=== PATIENT | female | born 1995 | race Caucasian/White ===

== ENCOUNTER 2019-11-03 16:22 | Emergency (ER) | payer BC ==
[~2019-11-03] VITALS: Ht 170.2 cm; Wt 72.7 kg
[2019-11-03 16:41] VITALS: Ht 170.2 cm; Wt 72.7 kg
[2019-11-03 17:06] LABS: BASOPHILS 0.1 % (0-2); EOSINOPHILS 0 % (0-7); IMMATURE GRANULOCYTES 0.3 % (0-5); LYMPHOCYTES 3.5 % (15-50); MCH 29.9 pg (26.0-34.0); MCHC 34.9 g/dL (31.0-37.0); MCV 85.7 fL (80.0-100.0); MEAN PLATELET VOLUME 10.7 fL (7.4-10.4); NEUTROPHILS 92.1 % (40-80); PLATELET COUNT 226 10x3/uL (130-400); RBC 5.02 10x6/uL (4.00-5.40); RDW 12.2 % (11.5-14.5)
[2019-11-03 17:13] LABS: BILIRUBIN NEGATIVE (NEGATIVE); GLUCOSE NEGATIVE (NEGATIVE); KETONE NEGATIVE (NEGATIVE); NITRITE NEGATIVE (NEGATIVE); UROBILINOGEN NORMAL (NORMAL)
[2019-11-03 17:14] LABS: HCG URINE NEGATIVE (NEGATIVE)
[2019-11-03 17:24] LABS: CALC OSMOLALITY 278 mosm/kg (275-300); CALCIUM 8.9 mg/dL (8.5-10.1); CARBON DIOXIDE 28.4 mmol/L (21.0-32.0); CHLORIDE - SERUM 101 mmol/L (98-107); CREATININE - SERUM 0.7 mg/dL (0.6-1.3); GLUCOSE 101 mg/dL (74-106); POTASSIUM - SERUM 3.8 mmol/L (3.5-5.1); SODIUM 140 mmol/L (136-145); UREA NITROGEN 13 mg/dL (7-18); eGFR NON AFRICAN AMERICAN > 90 mL/min (90-120)
[2019-11-03 17:29] LABS: ALBUMIN 4.1 g/dL (3.4-5.0); ALKALINE PHOSPHATASE 87 U/L (30-120); ALT (SGPT) 19 U/L (10-68); AMYLASE - SERUM 32 U/L (25-115); LIPASE 97 U/L (73-393); PROTEIN - SERUM 7.4 g/dL (6.4-8.2)
[2019-11-03 18:19] LABS: HCG SERUM NEGATIVE (NEGATIVE)
[2019-11-03 21:10] VITALS: BP 128/80
== END 2019-11-03 21:11 | disposition home or self-care (01) ==
LOC: D.ER 16:22
PROVIDERS: Family Medicine
DX: R10.9 Unspecified abdominal pain (principal); R11.2 Nausea with vomiting, unspecified; R19.7 Diarrhea, unspecified